=== PATIENT | male | born 1975 | race Caucasian/White ===

== ENCOUNTER 2024-06-16 01:39 | Emergency (ER) | payer SELFPAY ==
[~2024-06-16] VITALS: Ht 180.3 cm; Wt 108.0 kg
[2024-06-16 01:47] VITALS: O2SAT 100
[2024-06-16 03:14] LABS: HEMATOCRIT. 48.5 % (42.0-52.0); HEMOGLOBIN. 15.9 g/dL (14.0-18.0); MEAN CORPUSCULAR HEMOGLOBIN 30.3 pg (28.0-32.0); MEAN CORPUSCULAR HGB CONC 32.7 g/dL (31.0-37.0); MEAN CORPUSCULAR VOLUME 92.6 fL (80.0-94.0); MEAN PLATELET VOLUME 8.1 fl (7.4-10.4); PLATELET 298 x1000/uL (130-400); RED BLOOD CELL COUNT 5.24 mill/uL (4.7-6.1); RED CELL DISTRIBUTION WIDTH 13.6 % (11.6-14.6); WHITE BLOOD COUNT 15.9 x1000/uL (4.5-11.0)
[2024-06-16 03:24] LABS: CHLORIDE 110 mEq/L (98-107); SODIUM 144 mEq/L (136-145)
[2024-06-16 03:25] LABS: CALCIUM 9.2 mg/dL (8.7-10.4); CARBON DIOXIDE 22 mEq/L (21-32)
[2024-06-16 03:30] LABS: CREATININE 1.2 mg/dL (0.6-1.3); GLUCOSE 102 mg/dL (70-105); UREA NITROGEN BLOOD 12 mg/dL (9-23)
[2024-06-16] MEDS: SODIUM CHLORIDE 0.9% 1,000 ML IV ONE (04:05)
[2024-06-16] MEDS: MORPHINE SULFATE 4 MG/ML INJ (FOR IV/IM USE) IV STA (04:08)
[2024-06-16] MEDS: ONDANSETRON HCL 4MG/2ML INJ IV STA (04:08)
[2024-06-16 04:13] VITALS: TEMP 37.1
[2024-06-16 04:35] LABS: DIFFERENTIAL COMMENT 1
[2024-06-16] MEDS ORDERED: IBUP-2029 MT (04:54)
[2024-06-16] MEDS: IOHEXOL-300 100 ML BOTTLE ONE (05:46)
[2024-06-16 05:55] VITALS: BP 115/52; PULSE 83; RESP 18; O2SAT 100
[2024-06-16 06:22] LABS: PLATELET ESTIMATE NORMAL
== END 2024-06-16 05:57 | disposition home or self-care (01) ==
LOC: ER 01:39
DX: S00.83XA Contusion of other part of head, initial encounter (principal); S09.90XA Unspecified injury of head, initial encounter; Z79.899 Other long term (current) drug therapy; F12.90 Cannabis use, unspecified, uncomplicated; Y08.89XA Assault by other specified means, initial encounter; Y93.89 Activity, other specified; Y92.89 Other specified places as the place of occurrence of the external cause; Y99.8 Other external cause status
CPT/HCPCS: 80048; 85025; 86850; 86900; 86901; 36415; 73560; 70450; 71260; 72125; 74177; 96374; 96375; 99291; Q9967; J2405; J2270; J7030; Z7610